=== PATIENT | male | born 1955 | race Caucasian/White ===

== ENCOUNTER 2017-01-11 07:58 | Emergency (ER) | payer MEDICAID, OTHER ==
[~2017-01-11] VITALS: Ht 172.7 cm; Wt 86.2 kg
[~2017-01-11 07:58] MED LIST: METFORMIN HCL500 M1 ORAL; NKM
[2017-01-11] MEDS ORDERED: XANAX1 MG ORAL (08:07)
[2017-01-11] MEDS ORDERED: LISINOPRIL10 MG ORAL (08:07)
[2017-01-11] MEDS ORDERED: Dexamethasone 4mg/ml vial IVP ONE (08:15)
[2017-01-11] MEDS ORDERED: Famotidine 20 MG/ 2ML VIAL IVP ONE (08:15)
[2017-01-11] MEDS ORDERED: DiphenhydrAMINE 50mg/ml Inj IVP ONE (08:15)
--- NOTE | 2017-01-11 08:19 | Emergency Room Report ---
History of Present Illness General Chief Complaint: General Complaint Source: Patient Present Illness HPI Patient is a 61-year-old male presented after increased sore throat difficulty breathing. Patient gradual onset of symptoms. Patient noticed that his uvula become more swollen. The patient stated that he had no previous history of allergies. Patient been taking PRABHJOT inhibitor for several years. Patient denied prior history of angioedema. Patient had gradual onset of symptoms. Patient was noted to have no difficulty breathing. Patient states he had not been having fever. A moderate sore throat. Allergies: Coded Allergies: LISINOPRIL (Verified Allergy, Unknown, angioedema, 01/11/17) Patient History Past Medical History: see triage record Reviewed Nursing Documentation: PMH: Agreed, PSxH: Agreed Nursing Documentation-PMH Past Medical History: No History, Except For Hx Hypertension: Yes Hx Diabetes: Yes History Of Psychiatric Problem: Yes - anixety Review of Systems All Other Systems: negative except mentioned in HPI Physical Exam Vital Signs Date Time Temp Pulse Resp B/P Pulse Ox O2 Delivery O2 Flow Rate FiO2 01/11/17 08:00 97.3 86 16 158/103 97 Room Air General Appearance: well appearing, no apparent distress, alert, GCS 15 Head: normocephalic, atraumatic ENT: hearing grossly normal, other - muffled voice, uvular swelling and edema, no lip or tongue sweling Neck: full range of motion, supple Respiratory: no respiratory distress, speaking full sentences Musculoskeletal: no calf tenderness Neurologic: normal gait Psychiatric: mood/affect normal Skin: no rash Medical Decision Making Diagnostic Impression: Primary Impression: PRABHJOT inhibitor-aggravated angioedema ER Course Patient presented for sore throat. Differential diagnosis included but was not limited to angioedema, uvulitis, meningitis, exudative tonsillitis, retropharyngeal abscess, epiglottitis, strep pharyngitis. Because of complexity of patient's case laboratory testing and imaging studies were ordered. The patient was given IV steroids as well as antihistamines.The patient had some improvement in his symptoms. Patient was offered admission and he declined. Patient stated he wanted to go home. The patient appeared to have some improvement of swelling however there was some residual edema of the uvula. The patient had no stridor at anytime emergency department stay. Laboratory testing showed a normal white blood count with increased eosinophils consistent with allergic reaction versus angioedema. The patient does not appear to have infectious uvulitis. The patient was advised to return if he had increased difficulty breathing worsened problems swallowing or other concerns Labs Test 01/11/17 08:15 White Blood Count 8.4 K/UL (4.8-10.8) Red Blood Count 5.62 M/UL (4.70-6.10) Hemoglobin 15.1 G/DL (14.2-18.0) Hematocrit 47.5 % (42.0-52.0) Mean Corpuscular Volume 85 FL (80-99) Mean Corpuscular Hemoglobin 26.8 PG (27.0-31.0) Mean Corpuscular Hemoglobin Concent 31.7 G/DL (32.0-36.0) Red Cell Distribution Width 15.2 % (11.6-14.8) Platelet Count 190 K/UL (150-450) Mean Platelet Volume 9.1 FL (6.5-10.1) Neutrophils (%) (Auto) 70.7 % (45.0-75.0) Lymphocytes (%) (Auto) 13.3 % (20.0-45.0) Monocytes (%) (Auto) 11.7 % (1.0-10.0) Eosinophils (%) (Auto) 3.2 % (0.0-3.0) Basophils (%) (Auto) 1.2 % (0.0-2.0) Sodium Level 136 mEQ/L (135-145) Potassium Level 4.0 mEQ/L (3.4-4.9) Chloride Level 96 mEQ/L (98-107) Carbon Dioxide Level 27 mEQ/L (20-30) Anion Gap 13 (5-15) Blood Urea Nitrogen 18 mg/dL (7-23) Creatinine 1.0 mg/dL (0.7-1.2) Estimat Glomerular Filtration Rate > 60 mL/min (>60) Glucose Level 131 mg/dL (74-106) Calcium Level 9.2 mg/dL (8.6-10.2) Last Vital Signs Date Time Temp Pulse Resp B/P Pulse Ox O2 Delivery O2 Flow Rate FiO2 01/11/17 08:00 97.3 86 16 158/103 97 Room Air Status: unchanged Disposition: ADMITTED INPATIENT Condition: Serious Scripts Diphenhydramine Hcl* (BENADRYL*) 25 Mg Capsule 25 MG ORAL Q6H Y for Itching, #30 CAP Prov: Kushal 01/11/17 Famotidine (PEPCID) 20 Mg Tablet 20 MG ORAL BEDTIME, #7 TAB 0 Refills Prov: Kushal 01/11/17 Kushal Sun Jan 11, 2017 08:19
[2017-01-11 08:30] VITALS: BP 162/108
[2017-01-11 08:37] LABS: BASOPHILS % (AUTO) 1.2 % (0.0-2.0); EOSINOPHILS % (AUTO) 3.2 % (0.0-3.0); LYMPHOCYTES % (AUTO) 13.3 % (20.0-45.0); MEAN CORPUSCULAR HEMOGLOBIN 26.8 PG (27.0-31.0); MEAN CORPUSCULAR HGB CONC 31.7 G/DL (32.0-36.0); MEAN CORPUSCULAR VOLUME 85 FL (80-99); MEAN PLATELET VOLUME 9.1 FL (6.5-10.1); MONOCYTES % (AUTO) 11.7 % (1.0-10.0); NEUTROPHILS % (AUTO) 70.7 % (45.0-75.0); PLATELET COUNT 190 K/UL (150-450); RED BLOOD COUNT 5.62 M/UL (4.70-6.10); RED CELL DISTRIBUTION WIDTH 15.2 % (11.6-14.8); WHITE BLOOD COUNT 8.4 K/UL (4.8-10.8)
[2017-01-11 08:58] LABS: ANION GAP 13 (5-15); CALCIUM 9.2 mg/dL (8.6-10.2); CARBON DIOXIDE 27 mEQ/L (20-30); CHLORIDE 96 mEQ/L (98-107); GLOMERULAR FILTRATION RATE > 60 mL/min (>60); HEMOLYSIS 8; SODIUM 136 mEQ/L (135-145)
[2017-01-11] MEDS ORDERED: BENADRYL25 MG ORAL (10:08)
[2017-01-11] MEDS ORDERED: PEPCID20 MG ORAL (10:08)
[2017-01-11 10:11] VITALS: BP 149/100
[2017-01-11 10:20] VITALS: BP 149/100
== END 2017-01-11 10:21 | disposition home or self-care (01) ==
LOC: EMR 08:18
DX: T78.3XXA Angioneurotic edema, initial encounter (principal); T50.995A Adverse effect of other drugs, medicaments and biological substances, initial encounter; I10 Essential (primary) hypertension; F41.9 Anxiety disorder, unspecified; E11.9 Type 2 diabetes mellitus without complications; Z88.8 Allergy status to other drugs, medicaments and biological substances; X58.XXXA Exposure to other specified factors, initial encounter; Y92.9 Unspecified place or not applicable; Y99.8 Other external cause status
CPT/HCPCS: 36415; 80048; 85025; 96374; 96375; 99284; J1100; J1200; S0028